=== PATIENT | female | born 1985 | race Caucasian/White ===

== ENCOUNTER 2016-12-26 15:18 | Emergency (ER) | payer BC ==
[2016-12-26 16:56] VITALS: RESP 20; TEMP 99.2
[2016-12-26 17:10] VITALS: BP 104/79; PULSE 93; O2SAT 100
== END 2016-12-26 17:15 | disposition home or self-care (01) ==
LOC: ED 15:18
DX: H66.93 Otitis media, unspecified, bilateral (principal)
CPT/HCPCS: 99282